=== PATIENT | female | born 1995 | race Caucasian/White ===

== ENCOUNTER 2018-07-30 13:17 | Emergency (ER) | payer OTHER ==
[2018-07-30 14:11] LABS: URINE BLOOD (Dip) POC 1+ (NEGATIVE); URINE GLUCOSE (Dip) POC Negative (NEGATIVE); URINE KETONES (Dip) POC Negative (NEGATIVE); URINE LEUKOCYTE EST (Dip) POC Trace (NEGATIVE); URINE NITRITE (Dip) POC Negative (NEGATIVE); URINE TOTAL PROTEIN POC Negative (NEGATIVE)
== END 2018-07-30 16:00 | disposition home or self-care (01) ==
LOC: FTE 13:17
DX: M79.601 Pain in right arm (principal); R10.9 Unspecified abdominal pain; M54.2 Cervicalgia
CPT/HCPCS: 71045; 73080-LT; 74018; 76705; 81003; 81025; 99284-25